=== PATIENT | male | born 1970 | race Caucasian/White ===

== ENCOUNTER 2018-07-13 10:53 | Observation (INO) | payer OTHER ==
[2018-07-13 11:02] VITALS: RESP 18
[2018-07-13] MEDS ORDERED: NITROGLYCERIN OINT 1 INCH/GM PACKET TOPICAL STA (11:18)
--- NOTE | 2018-07-13 11:25 | ED ---
General Adult HPI - General Chief complaint: Chest Pain Stated complaint: chest pain Time Seen by Provider: 07/13/18 11:00 Source: patient, RN notes reviewed Mode of arrival: ambulatory Limitations: no limitations - History of Present Illness Initial comments: This is a 48-year-old male who has a past medical history significant for type 2 diabetes occasional high blood pressure and just quit smoking in March. Patient also states he has a strong family history for heart disease. Patient states over the last couple days he's been having some intermittent chest pain last for quite a while and it feels like a pressure that radiates to his back a little bit. Patient states she's also mildly short of breath. Patient states currently he only has mild chest pain but it was much worse prior to coming in at work. Patient states he was not exerting himself at work he was going about his normal job. Patient denies any lightheadedness or dizziness. Patient denies any headache patient denies numbness weakness. Patient denies any palpitations. Patient denies any abdominal pain patient denies nausea vomiting or diarrhea. Patient has any recent fever chills or cough per patient denies any swelling to the legs. - Related Data Home Medications Medication Instructions Recorded Confirmed Allopurinol [Zyloprim] 300 mg PO DAILY 07/13/18 07/13/18 Nitroglycerin Sl Tabs [Nitrostat] 0.4 mg SUBLINGUAL Q5M PRN 07/13/18 07/13/18 metFORMIN HCL [Glucophage] 500 mg PO BID 07/13/18 07/13/18 Allergies Allergy/AdvReac Type Severity Reaction Status Date / Time No Known Allergies Allergy Verified 07/13/18 11:19 Review of Systems ROS Statement: Those systems with pertinent positive or pertinent negative responses have been documented in the HPI. ROS Other: All systems not noted in ROS Statement are negative. Past Medical History Past Medical History: Hypertension Additional Past Medical History / Comment(s): gout, aortic valve regurgitation History of Any Multi-Drug Resistant Organisms: None Reported Additional Past Surgical History / Comment(s): lip surgery Past Psychological History: No Psychological Hx Reported Smoking Status: Former smoker Past Alcohol Use History: Occasional Past Drug Use History: None Reported General Exam - General Exam Comments Initial Comments: GENERAL: Patient is well-developed and well-nourished. Patient is nontoxic and well- hydrated and is in mild distress. ENT: Neck is soft and supple. No significant lymphadenopathy is noted. Oropharynx is clear. Moist mucous membranes. Neck has full range of motion without eliciting any pain. EYES: The sclera were anicteric and conjunctiva were pink and moist. Extraocular movements were intact and pupils were equal round and reactive to light. Eyelids were unremarkable. PULMONARY: Unlabored respirations. Good breath sounds bilaterally. No audible rales rhonchi or wheezing was noted. CARDIOVASCULAR: There is a regular rate and rhythm without any murmurs gallops or rubs. ABDOMEN: Soft and nontender with normal bowel sounds. No palpable organomegaly was noted. There is no palpable pulsatile mass. SKIN: Skin is clear with no lesions or rashes and otherwise unremarkable. NEUROLOGIC: Patient is alert and oriented x3. Cranial nerves II through XII are grossly intact. Motor and sensory are also intact. Normal speech, volume and content. Symmetrical smile. MUSCULOSKELETAL: Normal extremities with adequate strength and full range of motion. No lower extremity swelling or edema. No calf tenderness. LYMPHATICS: No significant lymphadenopathy is noted PSYCHIATRIC: Normal psychiatric evaluation. Limitations: no limitations Course Vital Signs 07/13/18 10:59 Temperature 98.4 F Pulse Rate 99 Respiratory 18 Rate Blood Pressure 155/97 O2 Sat by Pulse 99 Oximetry Medical Decision Making - Medical Decision Making EKG shows normal sinus rhythm at 95 bpm SD interval is 132 QRS is 82 QT interval 370 QTC is 475 per patient's EKG shows no ST segment elevation or depression or T wave abnormalities are noted. Chest x-ray shows no acute abnormality. Patient's chest pain was completely relieved with nitroglycerin. I started the patient on heparin.. I spoke with Dr. Field he agreed to admit the patient admitted the patient I wrote admitting orders to continue the heparin and aspirin Nitropaste on the floor. I consult to cardiology. - Lab Data Result diagrams: 07/13/18 11:29 07/13/18 11:29 Lab Results 07/13/18 07/13/18 07/13/18 Range/Units 11:29 11:29 11:29 WBC 3.9 (3.8-10.6) k/uL RBC 3.70 L (4.30-5.90) m/uL Hgb 13.3 (13.0-17.5) gm/dL Hct 38.0 L (39.0-53.0) % MCV 102.7 H (80.0-100.0) fL MCH 36.0 H (25.0-35.0) pg MCHC 35.1 (31.0-37.0) g/dL RDW 14.6 (11.5-15.5) % Plt Count 164 (150-450) k/uL Neutrophils % 54 % Lymphocytes % 34 % Monocytes % 8 % Eosinophils % 3 % Basophils % 1 % Neutrophils # 2.1 (1.3-7.7) k/uL Lymphocytes # 1.3 (1.0-4.8) k/uL Monocytes # 0.3 (0-1.0) k/uL Eosinophils # 0.1 (0-0.7) k/uL Basophils # 0.0 (0-0.2) k/uL Hyperchromasia Slight Macrocytosis Slight PT (9.0-12.0) sec INR (<1.2) APTT (22.0-30.0) sec Sodium 141 (137-145) mmol/L Potassium 4.1 (3.5-5.1) mmol/L Chloride 105 (98-107) mmol/L Carbon Dioxide 28 (22-30) mmol/L Anion Gap 8 mmol/L BUN 11 (9-20) mg/dL Creatinine 0.91 (0.66-1.25) mg/dL Est GFR (CKD-EPI)AfAm >90 (>60 ml/min/1.73 sqM) Est GFR (CKD-EPI)NonAf >90 (>60 ml/min/1.73 sqM) Glucose 96 (74-99) mg/dL Calcium 9.1 (8.4-10.2) mg/dL Magnesium 2.0 (1.6-2.3) mg/dL Total Bilirubin 1.1 (0.2-1.3) mg/dL AST 31 (17-59) U/L ALT 41 (21-72) U/L Alkaline Phosphatase 65 (38-126) U/L Total Creatine Kinase 187 H (55-170) U/L CK-MB (CK-2) 1.1 (0.0-2.4) ng/mL CK-MB (CK-2) Rel Index 0.6 Troponin I <0.012 (0.000-0.034) ng/mL Total Protein 7.6 (6.3-8.2) g/dL Albumin 4.7 (3.5-5.0) g/dL 07/13/18 Range/Units 11:29 WBC (3.8-10.6) k/uL RBC (4.30-5.90) m/uL Hgb (13.0-17.5) gm/dL Hct (39.0-53.0) % MCV (80.0-100.0) fL MCH (25.0-35.0) pg MCHC (31.0-37.0) g/dL RDW (11.5-15.5) % Plt Count (150-450) k/uL Neutrophils % % Lymphocytes % % Monocytes % % Eosinophils % % Basophils % % Neutrophils # (1.3-7.7) k/uL Lymphocytes # (1.0-4.8) k/uL Monocytes # (0-1.0) k/uL Eosinophils # (0-0.7) k/uL Basophils # (0-0.2) k/uL Hyperchromasia Macrocytosis PT 10.7 (9.0-12.0) sec INR 1.0 (<1.2) APTT 24.5 (22.0-30.0) sec Sodium (137-145) mmol/L Potassium (3.5-5.1) mmol/L Chloride (98-107) mmol/L Carbon Dioxide (22-30) mmol/L Anion Gap mmol/L BUN (9-20) mg/dL Creatinine (0.66-1.25) mg/dL Est GFR (CKD-EPI)AfAm (>60 ml/min/1.73 sqM) Est GFR (CKD-EPI)NonAf (>60 ml/min/1.73 sqM) Glucose (74-99) mg/dL Calcium (8.4-10.2) mg/dL Magnesium (1.6-2.3) mg/dL Total Bilirubin (0.2-1.3) mg/dL AST (17-59) U/L ALT (21-72) U/L Alkaline Phosphatase (38-126) U/L Total Creatine Kinase (55-170) U/L CK-MB (CK-2) (0.0-2.4) ng/mL CK-MB (CK-2) Rel Index Troponin I (0.000-0.034) ng/mL Total Protein (6.3-8.2) g/dL Albumin (3.5-5.0) g/dL Critical Care Time Critical Care Time: Yes Total Critical Care Time: 35 Disposition Clinical Impression: Unstable angina pectoris Disposition: ADMITTED IP TO THIS HOSP Referrals: Kyle Tony MD [Primary Care Provider] - 1-2 days Time of Disposition: 12:34
[2018-07-13] MEDS: ASPIRIN 81 MG PO STA ×2 (11:46→11:47)
[2018-07-13 11:51] LABS: Basophils % (A) 1 %; Eosinophils # (A) 0.1 k/uL (0-0.7); Eosinophils % (A) 3 %; HGB 13.3 gm/dL (13.0-17.5); Hyperchromasia Slight; Lymphocytes # (A) 1.3 k/uL (1.0-4.8); Lymphocytes % (A) 34 %; MCHC 35.1 g/dL (31.0-37.0); MCV 102.7 fL (80.0-100.0); Macrocytosis Slight; Mean Platelet Volume 6.2; Monocytes # (A) 0.3 k/uL (0-1.0); Monocytes % (A) 8 %; Neutrophils # (A) 2.1 k/uL (1.3-7.7); Neutrophils % (A) 54 %; Platelet Count 164 k/uL (150-450); RDW 14.6 % (11.5-15.5); WBC 3.9 k/uL (3.8-10.6)
[2018-07-13 11:55] LABS: Partial Thromboplastin Time 24.5 sec (22.0-30.0); Prothrombin Time 10.7 sec (9.0-12.0)
[2018-07-13 12:00] LABS: ALT 41 U/L (21-72); AST 31 U/L (17-59); Albumin 4.7 g/dL (3.5-5.0); Alkaline Phosphatase 65 U/L (38-126); Anion Gap 8 mmol/L; Blood Urea Nitrogen 11 mg/dL (9-20); Calcium 9.1 mg/dL (8.4-10.2); Carbon Dioxide 28 mmol/L (22-30); Chloride 105 mmol/L (98-107); Glucose 96 mg/dL (74-99); Potassium 4.1 mmol/L (3.5-5.1); Sodium 141 mmol/L (137-145); Total Bilirubin 1.1 mg/dL (0.2-1.3); Total Protein 7.6 g/dL (6.3-8.2)
--- NOTE | 2018-07-13 12:02 | XR ---
EXAMINATION TYPE: XR chest 2V DATE OF EXAM: 07/13/2018 COMPARISON: NONE TECHNIQUE: PA and lateral views submitted. HISTORY: Chest pain FINDINGS: The lungs are clear and there is no pneumothorax, pleural effusion, or focal pneumonia. Hypertrophi c change of the AC joint. Hypertrophic and degenerative change. Biapical pleural thickening. IMPRESSION: 1. No acute process.
[2018-07-13 12:03] LABS: Creatine Kinase 187 U/L (55-170)
[2018-07-13 12:17] LABS: Creatine Kinase MB 1.1 ng/mL (0.0-2.4); Troponin I <0.012 ng/mL (0.000-0.034)
[2018-07-13] MEDS ORDERED: HEPARIN SODIUM,PORCINE 5,000 UNIT/ML 1 ML VIAL IV ONE (12:31)
[2018-07-13] MEDS ORDERED: NITROGLYCERIN SL TABS 0.4 MG TAB SUBLINGUAL PRN (12:35)
[2018-07-13] MEDS ORDERED: HEPARIN SOD,PORK IN 0.45% NACL 25,000 UNIT in 0.45% NACL 1 250ML.BAG IV SCH (12:45)
[2018-07-13] MEDS: LOSARTAN 25 MG TAB PO SCH (14:55)
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
[2018-07-13 16:47] LABS: Glucose,Whole Blood 129 mg/dL (75-99)
[2018-07-13] MEDS: INSULIN ASPART (NovoLOG) 100 UNIT/ML VIAL SQ SCH ×2 (17:04→21:35)
[2018-07-13 19:16] LABS: Creatine Kinase 147 U/L (55-170)
[2018-07-13] MEDS: NITROGLYCERIN OINT 1 INCH/GM PACKET TOPICAL SCH (19:18)
[2018-07-13 19:30] LABS: Creatine Kinase MB 0.9 ng/mL (0.0-2.4); Troponin I <0.012 ng/mL (0.000-0.034)
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
[2018-07-13 20:42] LABS: Glucose,Whole Blood 105 mg/dL (75-99)
[2018-07-14 00:11] LABS: Creatine Kinase 131 U/L (55-170)
[2018-07-14 00:24] LABS: Creatine Kinase MB 0.7 ng/mL (0.0-2.4); Troponin I <0.012 ng/mL (0.000-0.034)
[2018-07-14] MEDS: NITROGLYCERIN OINT 1 INCH/GM PACKET TOPICAL SCH ×2 (01:10→05:17)
[2018-07-14 01:48] LABS: Cholesterol 146 mg/dL (<200); HDL Cholesterol 48 mg/dL (40-60); LDL Cholesterol,Calculated 74 mg/dL (0-99); Triglycerides 119 mg/dL (<150)
[2018-07-14 04:03] VITALS: PULSE 80
[2018-07-14] MEDS ORDERED: PANTOPRAZOLE 40 MG TABLET PO SCH (07:30)
[2018-07-14] MEDS: INSULIN ASPART (NovoLOG) 100 UNIT/ML VIAL SQ SCH (07:50)
[2018-07-14 08:08] VITALS: BP 160/98; TEMP 98.3
[2018-07-14] MEDS ORDERED: ASPIRIN 325 MG TAB PO SCH (09:00)
[2018-07-14] MEDS ORDERED: ALLOPURINOL 300 MG TAB PO SCH (09:00)
[2018-07-14] MEDS ORDERED: LOSARTAN 50 MG TAB PO SCH (09:15)
--- NOTE | 2018-07-14 09:37 | P.PN ---
Subjective This is a pleasant 48-year-old male past medical history significant for hypertension, diabetes mellitus, aortic regurgitation and former nicotine dependence. He also has significant family history of premature coronary artery disease with his father, grandfather all multiple uncles all having heart attacks and bypass surgery and early due to cardiovascular disease. He follows in the office with Dr. Ashford. Mr. Moreno is seen and examined sitting up resting comfortably in bed in no acute distress. He states up until around 6 PM last evening he was still having intermittent episodes of chest discomfort. However since that time his symptoms have subsided and he has been resting comfortably with no further symptoms of chest discomfort. He has been up ambulating around the room with no chest pain. Laboratory data reviewed, cardiac enzymes negative 3, LDL 74 and HDL 48. Blood pressure 160/98 heart rate 88 afebrile maintaining oxygen saturation on room air. We have been asked to see him in consultation for chest pain. He states for the last couple of months he has noticed and heavy pressure sensation in the left precordial region with radiation through to the back. 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 This comes intermittently. He first noticed in May when he was moving some furniture. At that time it seemed to subside with rest and get worse when he would exert himself again. This morning while at work doing not particularly stressful or exerting he again felt the symptoms of chest heaviness. Similar to how he felt in May with radiation through to the back and this time down both arms as well. He took at SL nitorglycerin and his pain went away. He denies radiation the neck or jaw. He denies associated shortness of breath, dizziness, palpitations, nausea, vomiting or diaphoresis. He has not had any further symptoms since arrival. Blood pressure 162/86 heart rate 85 afebrile maintaining oxygen saturation on room air GENERAL: This is a 48-year-old male in no apparent distress at the time of my examination. HEENT: Head is atraumatic, normocephalic. Pupils are equal, round. Sclerae anicteric. Conjunctivae are clear. Mucous membranes of the mouth are moist. Neck is supple. There is no jugular venous distention. No carotid bruit is heard. LUNGS: Clear to auscultation no wheezes, rales or rhonchi. No chest wall tenderness is noted on palpation or with deep breathing. HEART: Regular rate and rhythm with systolic ejection murmur at the base, no rubs or gallops. S1 and S2 heard. EXTREMITIES: No evidence of peripheral edema and no calf tenderness noted. ASSESSMENT Unstable angina, resolved. Hypertension, uncontrolled noncompliant with medications. Diabetes mellitus, not currently taking recommended metformin Former nicotine dependence, quit November Significant family history of premature coronary artery disease in father, grand father and uncles PLAN An acute event has been ruled out. Discontinue heparin infusion. Losartan was increased per primary care team to 50 mg daily. Blood pressures remain elevated, may consider increasing to 100 daily. Proceed with Cardiolyte stress test today. If any evidence of reversible ischemia will consider coronary angiography. If normal he may be discharged home to follow up with Dr. Ashford in the office. Echo has been obtained and will be reviewed. Discussed with the patient the need for compliance with anti-hypertensive regimen. Further recommendations to follow based on clinical course. Nurse Practitioner note has been reviewed, I agree with a documented findings and plan of care. Patient was seen and examined. Objective - Vital Signs Vital signs: Vital Signs Temp 98.3 F 07/14/18 08:00 Pulse 80 07/14/18 08:00 Resp 18 07/14/18 08:00 BP 160/98 07/14/18 08:00 Pulse Ox 100 07/14/18 08:00 Intake & Output 07/13/18 07/14/18 07/14/18 18:59 06:59 18:59 Intake Total 160.809 Balance 160.809 Weight 92.986 kg Intake: Intake, IV Titration 160.809 Amount Heparin Sod,Pork in 0.45% 160.809 NaCl 25,000 unit In 0.45 % NaCl 1 250ml.bag @ 10. 75 UNITS/KG/HR 9.99 mls/ hr IV .Q24H VASU Rx#: [id number] Other: Voiding Method Toilet Toilet Toilet # Voids 1 3 - Labs CBC & Chem 7: 07/13/18 11:29 07/13/18 11:29 Labs: Abnormal Lab Results - Last 24 Hours (Table) 07/13/18 07/13/18 07/13/18 Range/Units 11:29 11:29 16:46 RBC 3.70 L (4.30-5.90) m/uL Hct 38.0 L (39.0-53.0) % MCV 102.7 H (80.0-100.0) fL MCH 36.0 H (25.0-35.0) pg APTT (22.0-30.0) sec POC Glucose (mg/dL) 129 H (75-99) mg/dL Total Creatine Kinase 187 H (55-170) U/L 07/13/18 07/13/18 07/14/18 Range/Units 18:26 20:41 02:05 RBC (4.30-5.90) m/uL Hct (39.0-53.0) % MCV (80.0-100.0) fL MCH (25.0-35.0) pg APTT 31.6 H 33.1 H (22.0-30.0) sec POC Glucose (mg/dL) 105 H (75-99) mg/dL Total Creatine Kinase (55-170) U/L
[2018-07-14] MEDS: LOSARTAN 25 MG TAB PO SCH (10:31)
--- NOTE | 2018-07-14 10:34 | NM ---
EXAMINATION TYPE: NM stress cardiolite complete DATE OF EXAM: 07/14/2018 COMPARISON: NONE HISTORY: Chest pain, shortness of breath, palpitations, family history of coronary artery disease, to bacco abuse, diabetes and hypertension. TECHNIQUE: After the intravenous administration of 10.7 mCi Tc 99m Sestamibi - Rest images obtained 45 minutes post injection. The patient exercised using a ZENY protocol and 1 minute prior to peak exercise was injected with 26.1 mCi Tc 99m Sestamibi - Stress images obtained 10 minutes post injecti on. FINDINGS: Targeted heart rate was achieved during performance of the study. Review of stress and rest SPECT peter ges demonstrates no distinct reversible perfusion abnormality. Rest images demonstrate defects of th e anteroseptal wall however these do not persist on stress imaging relating to artifact. There is a f ixed defect of the ventricular apex typically related to physiologic apical thinning rather than old infarct. Gated analysis shows normal wall motion with an estimated left ventricular ejection fraction of 60% %. TID is within normal limits calculated at 0.89. IMPRESSION: 1. No scintigraphic evidence for reversible ischemia. 2. Estimated left ventricular ejection fraction of 60%.
--- NOTE | 2018-07-14 11:40 | EST ---
EXERCISE STRESS DATE OF SERVICE: 07/14/2018 AGE: 48 SEX: Male HT: 69" WT: 205 pounds PROTOCOL: Cardiolite Ko STAGE: II DURATION OF EXERCISE: 8 minutes HEART RATE REST: 80 BLOOD PRESSURE REST: 156/97 MAXIMUM HEART RATE ACHIEVED: 152 MAXIMUM BLOOD PRESSURE: 207/84 85% MPHR: 146 100% MPHR: 172 METS: 9.7 INDICATIONS: Chest pain. CLINICAL INFORMATION: STRESS DATA: Pretesting physical examination showed a heart rate of 80, pressure is 156/97 mmHg. Baseline EKG showed sinus mechanism. The patient exercised on the treadmill according to Ko protocol for a total of 8 minutes and achieved 9.7 METs. Max heart rate was 152, which is about 88% of maximum predicted heart rate. Maximum blood pressure was was 207/84 mmHg. Clinically, the patient did not have any symptoms of chest pain or chest discomfort during the testing or on recovery. The EKG showed about 0.[address]-segment depression and T-wave inversion in the lateral leads. CONCLUSION: 1. Excellent exercise tolerance. 2. Mildly abnormal EKG in response to exercise. 3. Please follow up on the Cardiolite portion on separate report from the radiology department. MMODL / IJN: [id number] /
[2018-07-14 11:59] LABS: Glucose,Whole Blood 126 mg/dL (75-99)
[2018-07-14 11:59] LABS: Glucose,Whole Blood 300 mg/dL (75-99)
[2018-07-14] MEDS ORDERED: metFORMIN 500 MG TAB PO SCH (12:15)
--- NOTE | 2018-07-14 14:15 | ECHOF ---
Referral Reason:cp MEASUREMENTS -------- HEIGHT: 175.3 cm WEIGHT: 93.0 kg BP: RVIDd: 2.9 cm (< 3.3) IVSd: 1.1 cm (0.6 - 1.1) LVIDd: 4.8 cm (3.9 - 5.3) LVPWd: 1.2 cm (0.6 - 1.1) IVSs: 1.6 cm LVIDs: 3.1 cm LVPWs: 1.7 cm LAESV Index (A-L): 33.00 ml/m Ao Diam: 3.1 cm (2.0 - 3.7) AV Cusp: 1.4 cm (1.5 - 2.6) LA Diam: 3.7 cm (2.7 - 3.8) EPSS: 0.4 cm MV E Ranjan: 0.91 m/s MV DecT: 223 ms MV A Ranjan: 1.21 m/s MV E/A Ratio: 0.75 AV maxP.58 mmHg AV meanP.20 mmHg RAP: 5.00 mmHg RVSP: 15.44 mmHg MV EF SLOPE: 117.68 mm/s (70 - 150) MV EXCURSION: 1.43 cm (> 18.000) FINDINGS -------- Resting tachycardia (HR>100bpm). This was a technically good study. The left ventricular size is normal. There is mild concentric left ventricular hypertrophy. Overa ll left ventricular systolic function is normal with, an EF between 55 - 60 %. The right ventricle is normal in size and function. LA is moderately dilated 34-39 ml/m2 RA appears enlarged. There is mild to moderate aortic valve sclerosis. Trace to mild aortic regurgitation. There is mo derate aortic stenosis present. Peak/mean gradient across the Aortic Valve is 39.58mmHg / 22.20mmHg . The mitral valve leaflets are mildly thickened. Mild mitral regurgitation is present. Trace tricuspid regurgitation present. Right ventricular systolic pressure is normal at < 35 mmHg. There is no evidence of pulmonary hypertension. The pulmonic valve was not well visualized. The aortic root size is normal. Normal inferior vena cava with normal inspiratory collapse consistent with estimated right atrial pre ssure of 5 mmHg. Echo free space indicative of a pericardial fat pad. There is no pericardial effusion. CONCLUSIONS -------- 1. Resting tachycardia (HR>100bpm). 2. This was a technically good study. 3. The left ventricular size is normal. 4. There is mild concentric left ventricular hypertrophy. 5. Overall left ventricular systolic function is normal with, an EF between 55 - 60 %. 6. LA is moderately dilated 34-39 ml/m2 7. RA appears enlarged. 8. There is mild to moderate aortic valve sclerosis. 9. Trace to mild aortic regurgitation. 10. There is moderate aortic stenosis present. 11. Peak/mean gradient across the Aortic Valve is 39.58mmHg / 22.20mmHg. 12. The mitral valve leaflets are mildly thickened. 13. Mild mitral regurgitation is present. 14. Trace tricuspid regurgitation present. 15. Right ventricular systolic pressure is normal at < 35 mmHg. 16. There is no evidence of pulmonary hypertension. 17. The pulmonic valve was not well visualized. 18. The aortic root size is normal. 19. Echo free space indicative of a pericardial fat pad. 20. There is no pericardial effusion. STYLIST APPRENTICE: Sudhakar Lomax RDCS
--- NOTE | 2018-07-14 14:20 | P.DS ---
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 He noticed first episode around mid-May while he was moving furniture lately has been having symptoms on and off more often. He made an appointment to see Dr. Reilly cardiology sometimes in July. Patient apparently was prescribed nitroglycerin for any episodes chest pain. Patient developed to have midsternal chest pain today with minimum exertion and symptom radiated to the jaw on the right side ended up taking nitroglycerin subsided his pain he felt cold sweat and did not feel well become more anxious ended up coming to the emergency department at [facility] where was seen and evaluated. X-ray of the chest came back negative cardiac enzyme with negative troponin EKG showed no significant ST or T abnormality at the time. Patient was started on nitro patch and heparin drip and admitted to the hospital with the above problem. 07/14: Patient is seen today prior to his stress test and is without pain, shortness of breath, lightheadedness or dizziness. Patient has been seen by cardiology with plan Cardiolite stress test which came back negative. Patient was started on losartan for hypertension and Lipitor was also initiated during this hospitalization. Echocardiogram reveals EF of 55-60% with mild concentric left nuclear hypertrophy, mild to moderate aortic valve sclerosis, mild aortic regurgitation, moderate aortic stenosis, mild mitral regurgitation, trace tricuspid regurgitation, no pulmonary hypertension. Patient will be discharged home today in stable condition. Discharge diagnoses: 1. Chest pain, possible unstable angina, possible GERD. Acute coronary syndrome ruled out. 2. Hypertension. 3. Hyperlipidemia. 4. Diabetes mellitus type 2. 5. Gastroesophageal reflux disease and possible hernia. 6. Valvular heart disease with moderate aortic regurgitation. Discharge plan: Home Impression and plan of care have been directed as dictated by the signing physician. Mayi Randhawa nurse practitioner acting as scribe for signing physician. Patient Condition at Discharge: Good Plan - Discharge Summary Discharge Rx Participant: No New Discharge Prescriptions: New Atorvastatin [Lipitor] 10 mg PO DAILY #30 tab Losartan [Cozaar] 50 mg PO DAILY #30 tab Omeprazole [PriLOSEC] 20 mg PO AC-BID #60 cap Continue metFORMIN HCL [Glucophage] 500 mg PO BID Nitroglycerin Sl Tabs [Nitrostat] 0.4 mg SUBLINGUAL Q5M PRN PRN Reason: Angina Allopurinol [Zyloprim] 300 mg PO DAILY Discharge Medication List Allopurinol [Zyloprim] 300 mg PO DAILY 07/13/18 [History] Nitroglycerin Sl Tabs [Nitrostat] 0.4 mg SUBLINGUAL Q5M PRN 07/13/18 [History] metFORMIN HCL [Glucophage] 500 mg PO BID 07/13/18 [History] Atorvastatin [Lipitor] 10 mg PO DAILY #30 tab 07/14/18 [Rx] Losartan [Cozaar] 50 mg PO DAILY #30 tab 07/14/18 [Rx] Omeprazole [PriLOSEC] 20 mg PO AC-BID #60 cap 07/14/18 [Rx] Follow up Appointment(s)/Referral(s): Oren Ashford MD [STAFF PHYSICIAN] - 2 Weeks Kyle Tony MD [Primary Care Provider] - 1 Week Discharge Disposition: HOME SELF-CARE
[2018-07-15] MEDS ORDERED: ATORVASTATIN 10 MG TAB PO SCH (09:00)
== END 2018-07-14 12:28 | disposition home or self-care (01) ==
LOC: EC 10:53 → 1SOBS 12:36
PROVIDERS: ADMIT Internal Medicine Geriatric Medicine; ATTEND Internal Medicine Geriatric Medicine
DX: R07.89 Other chest pain (principal); R06.02 Shortness of breath; R00.2 Palpitations; R61 Generalized hyperhidrosis; F41.9 Anxiety disorder, unspecified; I10 Essential (primary) hypertension; E78.5 Hyperlipidemia, unspecified; E11.9 Type 2 diabetes mellitus without complications; K21.9 Gastro-esophageal reflux disease without esophagitis; M10.9 Gout, unspecified; I35.1 Nonrheumatic aortic (valve) insufficiency; I35.8 Other nonrheumatic aortic valve disorders; Z87.891 Personal history of nicotine dependence; Z91.14 Patient's other noncompliance with medication regimen; T46.5X6A Underdosing of other antihypertensive drugs, initial encounter; T38.3X6A Underdosing of insulin and oral hypoglycemic [antidiabetic] drugs, initial encounter; Z79.899 Other long term (current) drug therapy; Z79.84 Long term (current) use of oral hypoglycemic drugs; E66.9 Obesity, unspecified; Z68.30 Body mass index [BMI] 30.0-30.9, adult; Z80.49 Family history of malignant neoplasm of other genital organs; Z82.49 Family history of ischemic heart disease and other diseases of the circulatory system
CPT/HCPCS: 96366 ×2; 96376; 96365; 99291; 36415; 93005; 93017; 93306; 80061; 80053; 82550; 82553; 83735; 84484; 85025; 85610; 85730 ×2; 71046; 78452; G0378 ×2; A9500; J1644 ×2

== ENCOUNTER 2019-05-09 23:58 | Emergency (ER) | payer OTHER ==
[2019-05-10] MEDS ORDERED: MORPHINE SULFATE 4 MG/ML SYRINGE IV STA (00:15)
[2019-05-10] MEDS ORDERED: KETOROLAC 30 MG/ML 1 ML VIAL IVP STA (00:15)
[2019-05-10] MEDS ORDERED: SODIUM CHLORIDE 0.9% 1,000 ML IV STA (00:15)
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
--- NOTE | 2019-05-10 01:01 | XR ---
EXAMINATION TYPE: XR KUB DATE OF EXAM: 05/10/2019 COMPARISON: NONE HISTORY: Abdominal pain TECHNIQUE: 2 views FINDINGS: Bowel gas pattern is normal. There is no sign of intestinal obstruction or pneumoperitoneum . Fecal pattern is normal. Lung bases are clear. There are no pathologic calcifications over the kidn eys. IMPRESSION: Nonacute abdomen.
[2019-05-10 01:14] LABS: ALT 67 U/L (4-49); AST 97 U/L (17-59); African American GFR (CKD) >90 (>60 ml/min/1.73 sqM); Alkaline Phosphatase 57 U/L (38-126); Amylase 45 U/L (30-110); Anion Gap 12 mmol/L; Blood Urea Nitrogen 14 mg/dL (9-20); Calcium 9.4 mg/dL (8.4-10.2); Carbon Dioxide 22 mmol/L (22-30); Chloride 101 mmol/L (98-107); Glucose 177 mg/dL (74-99); Non-African American GFR(CKD) >90 (>60 ml/min/1.73 sqM); Potassium 3.9 mmol/L (3.5-5.1); Sodium 135 mmol/L (137-145); Total Bilirubin 1.1 mg/dL (0.2-1.3); Total Protein 7.9 g/dL (6.3-8.2)
[2019-05-10 01:20] LABS: Basophils % (A) 0 %; Eosinophils % (A) 1 %; HCT 37.5 % (39.0-53.0); HGB 13.3 gm/dL (13.0-17.5); Hyperchromasia Slight; Lymphocytes # (A) 0.5 k/uL (1.0-4.8); Lymphocytes % (A) 9 %; MCH 34.8 pg (25.0-35.0); MCHC 35.4 g/dL (31.0-37.0); MCV 98.4 fL (80.0-100.0); Mean Platelet Volume 7.2; Monocytes # (A) 0.3 k/uL (0-1.0); Monocytes % (A) 5 %; Neutrophils % (A) 85 %; Platelet Count 141 k/uL (150-450); Poikilocytosis Slight; RBC 3.81 m/uL (4.30-5.90); RDW 13.8 % (11.5-15.5); WBC 5.9 k/uL (3.8-10.6)
[2019-05-10 01:24] LABS: Partial Thromboplastin Time 25.2 sec (22.0-30.0); Prothrombin Time 10.7 sec (9.0-12.0)
[2019-05-10 01:27] LABS: Amorphous Sediment,Urine Occasional /hpf; Appearance,Urine Turbid (Clear); Bilirubin,Urine Negative (Negative); Blood,Urine Large (Negative); Color,Urine Red; Glucose,Urine (UA) Negative (Negative); Hyaline Casts,Urine 8 /lpf (0-2); Ketones,Urine Trace (Negative); Leukocyte Esterase,Urine Negative (Negative); Mucus,Urine Occasional /hpf; Nitrite,Urine Negative (Negative); Protein,Urine 1+ (Negative); RBC,Urine >182 /hpf (0-5); Urobilinogen,Urine <2.0 mg/dL (<2.0); WBC,Urine 59 /hpf (0-5)
[2019-05-10] MEDS ORDERED: SODIUM CHLORIDE 0.9% 500 ML 500 ML IV ONE (01:31)
[2019-05-10 01:52] VITALS: BP 119/82; PULSE 78; RESP 18
--- NOTE | 2019-05-10 02:04 | CT ---
EXAMINATION TYPE: CT abdomen pelvis wo con DATE OF EXAM: 05/10/2019 COMPARISON: HISTORY: Patient presents with left sided flank pain and hematuria. CT DLP: 863 mGycm Automated exposure control for dose reduction was used. Multiple axial sections were obtained from the diaphragm to the floor the pelvis with no contrast. FINDINGS: Lung bases are clear. There is no pleural effusion. Heart size is normal. There is no pericardial eff usion. Liver spleen pancreas gallbladder stomach appear normal. Bile ducts are not dilated. There is no adrenal mass. There is left-sided hydronephrosis and hydroureter. There is 3 mm calculus at the distal left ureter. Bladder distends smoothly. Right ureter appears normal. Right kidney appea rs normal. There is no retroperitoneal adenopathy. Appendix appears normal. There is no mesenteric edema. There is no ascites or free air. There is no sign of a bowel obstructio n. There is multilevel spondylotic change in the lumbar spine. There is no compression fracture. Bony pelvis is intact. IMPRESSION: Small obstructing calculus in the distal left ureter. Left-sided hydronephrosis and hydroureter. Norm al appendix.
[2019-05-10] MEDS ORDERED: HYDROcodone/APAP 5-325MG 1 EACH TAB PO STA (02:22)
== END 2019-05-10 02:26 | disposition home or self-care (01) ==
LOC: EC 23:58
DX: N13.2 Hydronephrosis with renal and ureteral calculous obstruction (principal); E87.2 Acidosis; E11.9 Type 2 diabetes mellitus without complications; I10 Essential (primary) hypertension; M10.9 Gout, unspecified; Z87.891 Personal history of nicotine dependence; Z79.84 Long term (current) use of oral hypoglycemic drugs; Z79.899 Other long term (current) drug therapy
CPT/HCPCS: 36415; 80053; 82150; 83605; 83690; 85025; 85610; 85730; 81001; 74018; 74176; 99285; 96374; 96375; 96361; J2270; J1885

== ENCOUNTER → 2020-02-18 | Outpatient (CLI) | payer OTHER ==
--- NOTE | 2020-02-18 19:15 | MR ---
EXAMINATION TYPE: MR knee LT wo con DATE OF EXAM: 02/18/2020 COMPARISON: None HISTORY: Internal derangement of left knee TECHNIQUE: Multiplanar, multisequence imaging of the left knee is performed without IV contrast. FINDINGS: MEDIAL MENISCUS: Along the anterior horn of the medial meniscus anteriorly there is a focus of interm ediate signal on T1 and increased T2-weighted sequences with a lamellated appearance measuring approx imately 3 cm x 1.8 cm in cephalad to caudal dimension by 1.4 cm in AP dimension, local edema changes are present. No evident meniscal tear. LATERAL MENISCUS: Anterior and posterior horns are intact without tear. CRUCIATE LIGAMENTS: The anterior and posterior cruciate ligaments are intact and unremarkable. COLLATERAL LIGAMENTS: The medial collateral ligament and lateral collateral ligament complex are inta ct and unremarkable. EXTENSOR MECHANISM: Visualized quadriceps and patellar tendons are intact. EFFUSION: Small suprapatellar joint effusion noted. POPLITEAL CYST: There is a semimembranosus gastrocnemius cyst measuring approximately 1.9 x 1.1 x 4. 6 cm TRICOMPARTMENT SPACES: Maintained. CARTILAGE: There is a fissure at the posterior patellar cartilage, axial image 23, grade 3 to grade I V chondromalacia present at the posterior patella BONE MARROW SIGNAL: Some minimal reconversion changes are present in the metaphysis of the distal fem ur and proximal tibia OTHER: Subcutaneous edema changes are present especially anterior to the patellar tendon IMPRESSION: Findings may represent a meniscal cyst or ganglion cyst anterior to the anterior horn of the medial m eniscus. Wills's cyst. 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
== END | disposition home or self-care (01) ==
LOC: RADMRIMAIN 06:05
PROVIDERS: ATTEND Physical Medicine & Rehabilitation
DX: M22.42 Chondromalacia patellae, left knee (principal); M71.22 Synovial cyst of popliteal space [Baker], left knee

== ENCOUNTER 2020-04-02 10:07 | Emergency (ER) | payer OTHER ==
[2020-04-02 10:17] VITALS: BP 147/93; PULSE 108; RESP 18; TEMP 98.4
[2020-04-02] MEDS ORDERED: ceFAZolin 1,000 MG VIAL (IM USE) IM STA (10:24)
[2020-04-02] MEDS ORDERED: DIPH,PERTUS(ACELL)TETVAC-LF 0.5 ML VIAL IM ONE (10:24)
[2020-04-02] MEDS ORDERED: LIDOCAINE 1% INJ 10MG/ML (20 ML MDV) SQ STA (10:35)
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
--- NOTE | 2020-04-02 12:39 | ED ---
Disposition Clinical Impression: Laceration Disposition: HOME SELF-CARE Condition: Stable Instructions (If sedation given, give patient instructions): Care For Your Stitches (ED), Laceration (ED) Additional Instructions: follow-up with primary care provider and ENT today. Take antibiotics as directed. Return to ER if any worsening symptoms. Please return for suture removal: Face: 5-7 days Please monitor for signs and symptoms of infection including: redness, warmth, drainage, discharge. Please return to ED if these signs or symptoms occur, new signs or symptoms develop or if condition worsens in anyway. Prescriptions: Cephalexin [Keflex] 500 mg PO Q6HR 10 Days #40 cap Is patient prescribed a controlled substance at d/c from ED?: No Referrals: Mat Paniagua DO [Doctor of Osteopathic Medicine] - 1-2 days Kyle Tony MD [Primary Care Provider] - 1-2 days
== END 2020-04-02 12:44 | disposition home or self-care (01) ==
LOC: EC 10:07
DX: S01.82XA Laceration with foreign body of other part of head, initial encounter (principal); M10.9 Gout, unspecified; Z79.899 Other long term (current) drug therapy; Z23 Encounter for immunization; W01.190A Fall on same level from slipping, tripping and stumbling with subsequent striking against furniture, initial encounter
CPT/HCPCS: 90715; 99283; 90471; 12013; J0690; J2001

== ENCOUNTER 2020-06-16 23:31 | Emergency (ER) | payer OTHER ==
[2020-06-16 23:37] VITALS: BP 117/66; TEMP 98.4
[2020-06-16] MEDS ORDERED: LIDOCAINE 1% INJ 10MG/ML (20 ML MDV) SQ ONE (23:51)
[2020-06-16 23:59] VITALS: PULSE 113; RESP 18
--- NOTE | 2020-06-17 00:02 | XR ---
EXAMINATION TYPE: XR hand complete LT DATE OF EXAM: 06/16/2020 COMPARISON: NONE HISTORY: Laceration. Pain. TECHNIQUE: 3 views FINDINGS: Metacarpals are intact. I see no fracture nor dislocation. Joint spaces are fairly normal. There are no erosions. There is no sign of a foreign body. IMPRESSION: Negative exam.
[2020-06-17] MEDS ORDERED: HYDROmorphone 0.5 MG/0.5 ML SYRINGE IM STA (00:22)
[2020-06-17] MEDS ORDERED: ACET/COD 300 MG/30 MG STARTER PACK 6 TAB BTL PO STA (00:22)
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
[2020-06-17] MEDS ORDERED: BACITRACIN OINT 1 EACH PACKET TOPICAL ONE (00:49)
== END 2020-06-17 01:01 | disposition home or self-care (01) ==
LOC: EC 23:31
DX: S66.822A Laceration of other specified muscles, fascia and tendons at wrist and hand level, left hand, initial encounter (principal); S61.412A Laceration without foreign body of left hand, initial encounter; M10.9 Gout, unspecified; Z79.899 Other long term (current) drug therapy; W01.0XXA Fall on same level from slipping, tripping and stumbling without subsequent striking against object, initial encounter; Y93.01 Activity, walking, marching and hiking; W25.XXXA Contact with sharp glass, initial encounter
CPT/HCPCS: 73130; 99283; 96372; 12002; J2001; J1170